=== PATIENT | female | born 1965 | race African-American/Black ===

== ENCOUNTER 2016-08-27 16:19 | Emergency (ER) | payer MEDICARE, MEDICAID ==
[~2016-08-27] VITALS: Ht 162.6 cm; Wt 48.6 kg
[2016-08-27] MEDS ORDERED: ATOR20TA86 PO (16:30)
[2016-08-27] MEDS ORDERED: VITAD1000 PO (16:30)
[2016-08-27] MEDS ORDERED: AMLO-512 PO (16:30)
[2016-08-27] MEDS ORDERED: [UNRECOGNIZED DRUG - CODE] MC (16:30)
[2016-08-27] MEDS ORDERED: ASPI-556 PO (16:30)
[2016-08-27] MEDS ORDERED: INSLAN SQ (16:30)
[2016-08-27] MEDS ORDERED: INSNOV SQ (16:30)
[2016-08-27 18:00] LABS: APPEARANCE,URINE CLOUDY (CLEAR); GLUCOSE, URINE (UA) >=1000 mg/dL (NEGATIVE); KETONES,URINE NEGATIVE (NEGATIVE); LEUKOCYTE ESTERASE ,URINE MODERATE (NEGATIVE); OCCULT BLOOD,URINE SMALL (NEGATIVE); PH,URINE 5.5 (5.0-8.0); PROTEIN,URINE NEGATIVE (NEGATIVE)
[2016-08-27 18:02] LABS: ADD UA MICROSCOPIC YES; SQUAMOUS EPITHELIAL CELL,UR Many /LPF (None Seen); WBC,URINE 26-50 /HPF (0-5)
[2016-08-27 21:16] VITALS: BP 132/87
== END 2016-08-27 21:20 | disposition home or self-care (01) ==
LOC: EMS 16:27
DX: B37.3 Candidiasis of vulva and vagina (principal); N39.0 Urinary tract infection, site not specified; E11.9 Type 2 diabetes mellitus without complications; E78.00 Pure hypercholesterolemia, unspecified; I11.9 Hypertensive heart disease without heart failure; I25.2 Old myocardial infarction; F17.210 Nicotine dependence, cigarettes, uncomplicated; Z79.82 Long term (current) use of aspirin; Z79.4 Long term (current) use of insulin
CPT/HCPCS: 82570; 87086; 99284

== ENCOUNTER 2018-04-28 18:10 | Emergency (ER) | payer MEDICARE, MEDICAID ==
[~2018-04-28] VITALS: Ht 162.6 cm; Wt 50.0 kg
[~2018-04-28 18:10] MED LIST: AMLO-512 PO; ASPI-556 PO; ATOR20TA86 PO; INSLAN SQ; INSNOV SQ; VITAD1000 PO; [UNRECOGNIZED DRUG - CODE] MC
[2018-04-28] MEDS ORDERED: CARV3 PO (18:22)
[2018-04-28] MEDS ORDERED: SODIUM CHLORIDE 0.9% 1,000 ML IV ONE (19:30)
[2018-04-28] MEDS ORDERED: INSULIN REGULAR, HUMAN 100 UNITS/ML IVP ONE (19:30)
[2018-04-28 19:46] LABS: ALBUMIN 3.6 g/dL (3.4-5.0); BILIRUBIN,TOTAL 0.4 mg/dL (0.1-1.0); CALCIUM, TOTAL 9.8 mg/dL (8.8-10.5); CREATININE 1.82 mg/dL (0.60-1.30); POTASSIUM 4.4 mmol/L (3.5-5.1); TOTAL PROTEIN, SERUM 7.7 g/dL (6.4-8.2)
[2018-04-28 19:47] LABS: BASOPHILS % (AUTO) 0.6 % (0.0-2.0); EOSINOPHILS % (AUTO) 0.6 % (1.0-6.0); HEMATOCRIT 43.5 % (36-46); HEMOGLOBIN 14.7 g/dL (12.0-16.0); LYMPHOCYTES % (AUTO) 12.9 % (22.0-44.0); MEAN CORPUSCULAR HEMOGLOBIN 32.7 pg (26.0-34.0); MEAN CORPUSCULAR HGB CONC 33.8 G/dL (31.0-37.0); MEAN CORPUSCULAR VOLUME 97 fL (80-100); MONOCYTES # (AUTO) 0.2 K/uL (0.1-1.0); MONOCYTES % (AUTO) 3.1 % (2.0-9.0); NEUTROPHILS # (AUTO) 6.4 K/uL (1.8-7.7); NEUTROPHILS % (AUTO) 82.8 % (40.0-70.0); PLATELET COUNT (AUTO) 192 K/uL (150-450); RED BLOOD CELL COUNT(AUTO) 4.48 MIL/uL (4.00-5.20); RED CELL DISTRIBUTION WIDTH 14.4 % (11.5-14.5)
[2018-04-28] MEDS: ACETAMINOPHEN 650 MG/20.3 ML SOLUTION UDCUP PO ONE ×2 (19:52→20:18)
[2018-04-28] MEDS ORDERED: MORPHINE SULFATE 4 MG/ML SYRINGE IVP ONE (20:00)
[2018-04-28] MEDS ORDERED: ONDANSETRON HCL 4 MG/2 ML VIAL IVP ONE (20:00)
[2018-04-28 21:49] LABS: GLUCOSE,POINT OF CARE 167 MG/DL (70-110)
[2018-04-28 22:15] VITALS: BP 156/83
== END 2018-04-28 22:36 | disposition home or self-care (01) ==
LOC: EMS 18:11
DX: S39.92XA Unspecified injury of lower back, initial encounter (principal); E11.65 Type 2 diabetes mellitus with hyperglycemia; E78.00 Pure hypercholesterolemia, unspecified; I10 Essential (primary) hypertension; I25.2 Old myocardial infarction; F17.210 Nicotine dependence, cigarettes, uncomplicated; Z79.4 Long term (current) use of insulin; Z79.82 Long term (current) use of aspirin; Z79.899 Other long term (current) drug therapy; Z98.62 Peripheral vascular angioplasty status; Z94.0 Kidney transplant status; W18.49XA Other slipping, tripping and stumbling without falling, initial encounter; Y93.89 Activity, other specified; Y92.89 Other specified places as the place of occurrence of the external cause; Y99.8 Other external cause status
CPT/HCPCS: 36415; 72220; 80053; 82962; 85025; 96361; 96374; 99285; J1815; J7030; J2270; J2405

== ENCOUNTER 2019-12-19 15:13 | Inpatient (IN) | payer MEDICARE, MEDICAID ==
[~2019-12-19] VITALS: Ht 157.5 cm; Wt 50.0 kg
[~2019-12-19 15:13] MED LIST changes: -AMLO-512 PO; +AMLO10TA7 PO; +CARV3 PO; +CHOL100018 PO; -VITAD1000 PO
[2019-12-19] MEDS ORDERED: 0.9% SODIUM CHLORIDE 10 ML SYRINGE IVP PRN (16:15)
[2019-12-19 16:45] LABS: HEMATOCRIT 26.3 % (36-46); HEMOGLOBIN 8.6 g/dL (12.0-16.0); MEAN CORPUSCULAR HEMOGLOBIN 30.5 pg (26.0-34.0); MEAN CORPUSCULAR HGB CONC 32.8 G/dL (31.0-37.0); MEAN CORPUSCULAR VOLUME 93 fL (80-100); RED BLOOD CELL COUNT(AUTO) 2.83 MIL/uL (4.00-5.20); RED CELL DISTRIBUTION WIDTH 14.7 % (11.5-14.5)
[2019-12-19 17:04] LABS: ALANINE AMINOTRANSFERASE 12 U/L (12-78); ALKALINE PHOSPHATASE 83 U/L (46-116); ANION GAP 28 mmol/L (8-16); ASPARTATE AMINOTRANSFERASE 17 U/L (15-37); BILIRUBIN,TOTAL 0.7 mg/dL (0.1-1.0); CALCIUM, TOTAL 8.6 mg/dL (8.8-10.5); CHLORIDE 95 mmol/L (98-107); CREATINE KINASE, TOTAL ONLY 114 U/L (26-192); CREATININE 15.25 mg/dL (0.60-1.30); GLOMERULAR FILTR. RATE CALC 3 mL/min (>60); SODIUM SERUM 131 mmol/L (136-145); TOTAL PROTEIN, SERUM 6.9 g/dL (6.4-8.2)
[2019-12-19 17:05] LABS: LACTIC ACID 0.6 mmol/L (0.4-2.0); PROTHROMBIN TIME 10.5 SEC (9.4-11.6); TROPONIN I 0.05 ng/mL (0.00-0.05)
[2019-12-19] MEDS ORDERED: PERMETHRIN 1% 60 ML LOTION TP ONE (17:15)
[2019-12-19] MEDS ORDERED: HydrALAZINE HCL 20 MG/ML VIAL IVP ONE ×2 (17:15→19:30)
[2019-12-19 17:16] LABS: CARBON DIOXIDE 8 mmol/L (22-29); GLUCOSE,RANDOM 408 mg/dL (70-110); POTASSIUM 6.7 mmol/L (3.5-5.1)
[2019-12-19 17:17] LABS: UREA NITROGEN, BLOOD 293 mg/dL (7-18)
[2019-12-19 17:19] LABS: AMMONIA < 10 umol/L (11-32)
[2019-12-19] MEDS ORDERED: CALCIUM GLUCONATE 100 MG/ML 10 ML IVP ONE (17:30)
[2019-12-19] MEDS ORDERED: INSULIN REGULAR, HUMAN 100 UNITS/ML IVP ONE (17:30)
[2019-12-19] MEDS ORDERED: SODIUM POLYSTYRENE SULFONATE 15 GM/60 ML SUSPENSION BOTTLE PO ONE (17:30)
[2019-12-19] MEDS ORDERED: FAMO-135 PO (17:42)
[2019-12-19] MEDS ORDERED: CYCL15CA PO (17:44)
[2019-12-19] MEDS ORDERED: MYCO500V2 IV (17:44)
[2019-12-19] MEDS ORDERED: PRED5 PO (17:44)
[2019-12-19] MEDS ORDERED: TACR0.75 PO (17:44)
[2019-12-19] MEDS ORDERED: SODIUM CHLORIDE 0.9% 1,000 ML IV ONE ×3 (17:45→22:15)
[2019-12-19] MEDS ORDERED: SODIUM ZIRCONIUM CYCLOSILICATE 5 GM POWDER PACKET PO ONE ×2 (17:45→23:30)
[2019-12-19 17:47] LABS: ABG CARBOXYHEMOGLOBIN 0.3 % (0.0-1.5); ABG METHEMOGLOBIN 0.3 % (0.0-1.5); ABG OXYGEN CONTENT 11.2 mL/dL (15.0-23.0); ABG OXYGEN SATURATION 85.4 % (95.0-98.0); ABG OXYHEMOGLOBIN 84.9 % (94.0-100.0); ABG TOTAL HEMOGLOBIN 9.3 G/dL (12.0-18.0); PO2, ARTERIAL BG 51.7 mmHg (84.0-92.0); SOURCE, BLOOD GAS ARTERIAL; TEMPERATURE, FAHRENHEIT, BG 94.3 FAHREN (96.0-98.6)
[2019-12-19 17:48] LABS: O2 DEVICE,BLOOD GAS ROOM AIR (ROOM AIR); SITE, BLOOD GAS LFT BRACHIAL
[2019-12-19] MEDS ORDERED: SODIUM BICARBONATE [ADULT] 8.4% 50 MEQ/50 ML SYRINGE IVP ONE (18:00)
[2019-12-19 18:43] LABS: PLATELET COUNT (AUTO) 87 K/uL (150-450)
[2019-12-19 18:45] LABS: BAND NEUTROPHILS % (MANUAL) 17 % (0-5); BUFFY COAT SMEAR PREP YES (NOT DONE); LYMPHOCYTES % (MANUAL) 2 % (22-44); MONOCYTES % (MANUAL) 16 % (2-9); SEGMENTED NEUTROPHILS % 65 % (40-70)
[2019-12-19] MEDS ORDERED: CefTRIAXone 1 GM/DEXTROSE 50 ML IV ONE (19:00)
[2019-12-19 19:17] LABS: ABG PH 7.196 (7.35-7.450)
[2019-12-19 19:18] LABS: ABG HCO3 8.6 mmol/L (22.0-26.0); ABG PCO2 14 mmHg (35-45)
[2019-12-19 20:29] LABS: APPEARANCE,URINE TURBID (CLEAR); GLUCOSE, URINE (UA) 250 mg/dL (NEGATIVE); KETONES,URINE >=80 mg/dL (NEGATIVE); LEUKOCYTE ESTERASE ,URINE LARGE (NEGATIVE); NITRATE,URINE POSITIVE (NEGATIVE); OCCULT BLOOD,URINE LARGE (NEGATIVE); PROTEIN,URINE SEE CONFIRM (NEGATIVE)
[2019-12-19 20:30] LABS: BILIRUBIN,URINE PRELIM. POSITIVE (NEGATIVE)
[2019-12-19 20:37] LABS: GLUCOSE,POINT OF CARE 164 MG/DL (70-110)
[2019-12-19 20:40] LABS: SULFOSALICYLIC ACID,URINE 4+ (Negative)
[2019-12-19 20:41] LABS: RBC,URINE Full Field /HPF (0-2)
[2019-12-19 20:42] LABS: BACTERIA,URINE Many /HPF (None Seen); SQUAMOUS EPITHELIAL CELL,UR Few /LPF (None Seen)
[2019-12-19 20:43] LABS: WBC,URINE 26-50 /HPF (0-5)
[2019-12-19 20:44] LABS: AMPHET/METH SCREEN,URINE NEGATIVE (NEGATIVE); BARBITURATE SCREEN, URINE NEGATIVE (NEGATIVE); BENZODIAZEPINES SCREEN,URINE NEGATIVE (NEGATIVE); CANNABINOID SCREEN,URINE POSITIVE (NEGATIVE); COCAINE SCREEN,URINE NEGATIVE (NEGATIVE); METHADONE SCREEN, URINE NEGATIVE (NEGATIVE); OPIATE SCREEN,URINE POSITIVE (NEGATIVE)
[2019-12-19] MEDS ORDERED: ACETAMINOPHEN 325 MG TABLET PO PRN ×2 (20:45→22:15)
[2019-12-19 20:49] LABS: PHENCYCLIDINE SCREEN,URINE NEGATIVE (NEGATIVE)
[2019-12-19 21:35] LABS: CREATININE 14.08 mg/dL (0.60-1.30); POTASSIUM 5.2 mmol/L (3.5-5.1)
[2019-12-19 21:40] LABS: GLUCOSE,POINT OF CARE 140 MG/DL (70-110)
[2019-12-19] MEDS ORDERED: BISACODYL 10 MG RECTAL RECTAL SUPPOSITORY PR PRN (22:15)
[2019-12-19] MEDS ORDERED: ONDANSETRON HCL 4 MG/2 ML VIAL IVP PRN (22:15)
[2019-12-19] MEDS ORDERED: ZOLPIDEM TARTRATE 5 MG TABLET PO PRN (22:15)
[2019-12-19] MEDS ORDERED: MORPHINE SULFATE 2 MG/ML SYRINGE IVP PRN (22:15)
[2019-12-20] VITALS (8 sets, daily range): BP systolic 117–173; BP diastolic 62–100
[2019-12-20] MEDS ORDERED: PNEUMOCOCCAL VACCINE POLYVALENT 0.5 ML VIAL [PPSV23] IM ONE (03:15)
[2019-12-20 06:20] LABS: HEMATOCRIT 22.7 % (36-46); HEMOGLOBIN 7.6 g/dL (12.0-16.0); MEAN CORPUSCULAR HEMOGLOBIN 30.5 pg (26.0-34.0); MEAN CORPUSCULAR HGB CONC 33.5 G/dL (31.0-37.0); MEAN CORPUSCULAR VOLUME 91 fL (80-100); PLATELET COUNT (AUTO) 69 K/uL (150-450); RED BLOOD CELL COUNT(AUTO) 2.49 MIL/uL (4.00-5.20); RED CELL DISTRIBUTION WIDTH 14.9 % (11.5-14.5)
[2019-12-20] MEDS: DOCUSATE SODIUM 100 MG CAPSULE PO SCH ×2 (07:51→21:00)
[2019-12-20] MEDS: CHOLECALCIFEROL (VIT D3) 1,000 UNITS [25 MCG] TABLET PO SCH (07:51)
[2019-12-20] MEDS: HEPARIN SODIUM,PORCINE 5,000 UNITS/ML VIAL SQ SCH ×2 (07:52)
[2019-12-20 07:56] LABS: ALBUMIN 2.8 g/dL (3.4-5.0); BILIRUBIN,TOTAL 0.7 mg/dL (0.1-1.0); CALCIUM, TOTAL 7.7 mg/dL (8.8-10.5); CREATININE 13.57 mg/dL (0.60-1.30); POTASSIUM 5.6 mmol/L (3.5-5.1); TOTAL PROTEIN, SERUM 6.3 g/dL (6.4-8.2)
[2019-12-20] MEDS ORDERED: PANTOPRAZOLE SODIUM 40 MG DR TABLET PO SCH (09:00)
[2019-12-20] MEDS: SODIUM BICARBONATE 150 MEQ in DEXTROSE 5%-WATER 1,000 ML IV SCH (09:13)
[2019-12-20] MEDS ORDERED: HYDROmorphone 2 MG/ML SYRINGE IVP ONE (09:15)
[2019-12-20] MEDS ORDERED: DIAZEPAM 5 MG/ML 2 ML SYRINGE IVP ONE (09:15)
[2019-12-20 09:19] LABS: BAND NEUTROPHILS % (MANUAL) 6 % (0-5); LYMPHOCYTES % (MANUAL) 12 % (22-44); MONOCYTES % (MANUAL) 12 % (2-9); SEGMENTED NEUTROPHILS % 70 % (40-70)
[2019-12-20] MEDS ORDERED: HEPARIN SODIUM,PORCINE 100 UNITS/ML 5 ML VIAL IVP ONE ×2 (09:30)
[2019-12-20] MEDS ORDERED: HEPARIN SODIUM,PORCINE 1,000 UNITS/ML VIAL ONE (09:55)
[2019-12-20] MEDS: LABETALOL HCL 100 MG TABLET PO SCH ×2 (10:30→21:00)
[2019-12-20] MEDS ORDERED: SODIUM CHLORIDE 0.9% 500 ML IV ONE (12:12)
[2019-12-20 14:17] LABS: MAGNESIUM 2.4 mg/dL (1.80-2.40)
[2019-12-20 14:33] LABS: PHOSPHORUS 9.7 mg/dL (2.5-4.9)
[2019-12-20 14:55] LABS: GLUCOSE,POINT OF CARE 268 MG/DL (70-110)
[2019-12-20] MEDS: INSULIN LISPRO 100 UNITS/ML SQ PRN (18:03)
[2019-12-20] MEDS: PANTOPRAZOLE SODIUM 80 MG in SODIUM CHLORIDE 0.9% 100 ML IV SCH (18:04)
[2019-12-20 18:28] LABS: GLUCOMETER DEV NAME(LOC) 4E.2; GLUCOSE,POINT OF CARE 290 MG/DL (70-110)
[2019-12-20] MEDS ORDERED: SODIUM CHLORIDE 0.9% 2,000 ML ONE (18:38)
[2019-12-20] MEDS ORDERED: SODIUM CHLORIDE 0.9% 1,000 ML IV ONE (19:30)
[2019-12-20] MEDS ORDERED: NOREPINEPHRINE BITARTRATE 16 MG in DEXTROSE 5%-WATER 234 ML IV PRN (19:30)
[2019-12-20] MEDS ORDERED: VANCOMYCIN HCL 1 GM/D5% WATER 200 ML IV STA (20:08)
[2019-12-20 20:17] LABS: ABG A-A DIFF O2 5.3 mmHg (10-20.0); ABG CARBOXYHEMOGLOBIN 1.8 % (0.0-1.5); ABG HCO3 12.5 mmol/L (22.0-26.0); ABG METHEMOGLOBIN 0.3 % (0.0-1.5); ABG OXYGEN CONTENT 7.4 mL/dL (15.0-23.0); ABG OXYGEN SATURATION 98.7 % (95.0-98.0); ABG OXYHEMOGLOBIN 96.6 % (94.0-100.0); ABG PH 7.392 (7.35-7.450); PO2, ARTERIAL BG 126.6 mmHg (84.0-92.0); SOURCE, BLOOD GAS ARTERIAL; TEMPERATURE, FAHRENHEIT, BG 97.1 FAHREN (96.0-98.6)
[2019-12-20 20:25] LABS: ABG PCO2 15 mmHg (35-45); ABG TOTAL HEMOGLOBIN 5.2 G/dL (12.0-18.0); SITE, BLOOD GAS RT BRACHIAL
[2019-12-20 20:26] LABS: O2 DEVICE,BLOOD GAS ROOM AIR (ROOM AIR)
[2019-12-20] MEDS ORDERED: VANCOMYCIN HCL 1 GM/D5% WATER 200 ML IV PRN (20:30)
[2019-12-20] MEDS ORDERED: RAPID SEQUENCE KIT [RSI] 1 EACH KIT ONE (20:40)
[2019-12-20 20:51] LABS: MEAN CORPUSCULAR HGB CONC 34.1 G/dL (31.0-37.0); MEAN CORPUSCULAR VOLUME 91 fL (80-100); RED BLOOD CELL COUNT(AUTO) 1.65 MIL/uL (4.00-5.20); RED CELL DISTRIBUTION WIDTH 14.8 % (11.5-14.5)
[2019-12-20] MEDS ORDERED: HEPARIN SODIUM 1000 UNITS/NS 500 ML ONE (20:57)
[2019-12-20] MEDS ORDERED: CefTRIAXone 1 GM/DEXTROSE 50 ML IV SCH (21:00)
[2019-12-20] MEDS: ATORVASTATIN CALCIUM 20 MG TABLET PO SCH (21:00)
[2019-12-20 21:14] LABS: HEMOGLOBIN 5.1 g/dL (12.0-16.0)
[2019-12-20 21:18] LABS: PLATELET COUNT (AUTO) 45 K/uL (150-450)
[2019-12-20 22:14] LABS: BAND NEUTROPHILS % (MANUAL) 11 % (0-5); LYMPHOCYTES % (MANUAL) 4 % (22-44); MONOCYTES % (MANUAL) 13 % (2-9); SEGMENTED NEUTROPHILS % 72 % (40-70)
[2019-12-20 22:44] LABS: PROTHROMBIN TIME 12.7 SEC (9.4-11.6)
[2019-12-20 22:45] LABS: INR 1.2 (0.9-1.1)
[2019-12-20 22:46] LABS: D-DIMER 2.87 mg/L FEU (0.00-0.50)
[2019-12-20] MEDS: PROPOFOL 1000 MG/ISO-OSM 100 ML IV PRN (23:00)
[2019-12-20] MEDS ORDERED: VASOPRESSIN 40 UNITS in DEXTROSE 5%-WATER 98 ML IV PRN (23:13)
[2019-12-20] MEDS ORDERED: PHENYLEPHRINE HCL 400 MG in DEXTROSE 5%-WATER 210 ML IV PRN (23:13)
[2019-12-20 23:46] LABS: ABG A-A DIFF O2 315.4 mmHg (10-20.0); ABG BASE EXCESS -18.3 mmol/L (-2.0-3.0); ABG CARBOXYHEMOGLOBIN 2.4 % (0.0-1.5); ABG METHEMOGLOBIN 0.3 % (0.0-1.5); ABG OXYGEN CONTENT 5.8 mL/dL (15.0-23.0); ABG OXYGEN SATURATION 99.7 % (95.0-98.0); ABG PCO2 30 mmHg (35-45); SOURCE, BLOOD GAS ARTERIAL; TEMPERATURE, FAHRENHEIT, BG 97.3 FAHREN (96.0-98.6)
[2019-12-20 23:47] LABS: ABG PH 7.165 (7.35-7.450); ABG TOTAL HEMOGLOBIN 3.4 G/dL (12.0-18.0); O2 DEVICE,BLOOD GAS VENTILATOR (ROOM AIR); SITE, BLOOD GAS ARTERIAL LINE
[2019-12-20 23:48] LABS: PEEP,BG 5 cm H2O; VT, ABG 450 ml
[2019-12-21] VITALS (14 sets, daily range): BP systolic 90–184; BP diastolic 32–87
[2019-12-21] MEDS: PIPERACILLIN SODIUM/TAZOBACTAM 2.25 GM in DEXTROSE 5%-WATER 50 ML IV SCH ×4 (00:08→21:29)
[2019-12-21] MEDS: SODIUM BICARBONATE 150 MEQ in DEXTROSE 5%-WATER 1,000 ML IV SCH ×2 (00:11→17:07)
[2019-12-21 01:57] LABS: ABG A-A DIFF O2 179.6 mmHg (10-20.0); ABG BASE EXCESS -15.9 mmol/L (-2.0-3.0); ABG CARBOXYHEMOGLOBIN 0.2 % (0.0-1.5); ABG HCO3 13.1 mmol/L (22.0-26.0); ABG METHEMOGLOBIN 0.3 % (0.0-1.5); ABG OXYGEN CONTENT 12.5 mL/dL (15.0-23.0); ABG OXYGEN SATURATION 99.6 % (95.0-98.0); ABG OXYHEMOGLOBIN 99.1 % (94.0-100.0); ABG PCO2 20 mmHg (35-45); ABG PH 7.323 (7.35-7.450); PO2, ARTERIAL BG 515.3 mmHg (84.0-92.0); SOURCE, BLOOD GAS ARTERIAL; TEMPERATURE, FAHRENHEIT, BG 97.1 FAHREN (96.0-98.6)
[2019-12-21 01:58] LABS: ABG TOTAL HEMOGLOBIN 7.9 G/dL (12.0-18.0); O2 DEVICE,BLOOD GAS VENTILATOR (ROOM AIR); SITE, BLOOD GAS ARTERIAL LINE; VT, ABG 350 ml
[2019-12-21 01:59] LABS: PEEP,BG 5 cm H2O
[2019-12-21] MEDS: PANTOPRAZOLE SODIUM 80 MG in SODIUM CHLORIDE 0.9% 100 ML IV SCH ×2 (05:33→13:54)
[2019-12-21 06:46] LABS: GLUCOSE,POINT OF CARE 279 MG/DL (70-110)
[2019-12-21] MEDS: INSULIN LISPRO 100 UNITS/ML SQ PRN ×2 (06:54→12:31)
[2019-12-21 06:56] LABS: CREATININE 10.08 mg/dL (0.60-1.30); MAGNESIUM 2.1 mg/dL (1.80-2.40); POTASSIUM 5.4 mmol/L (3.5-5.1)
[2019-12-21 06:59] LABS: GLUCOSE,POINT OF CARE 341 MG/DL (70-110)
[2019-12-21 07:30] LABS: HEMATOCRIT 26.7 % (36-46); MEAN CORPUSCULAR HEMOGLOBIN 30.6 pg (26.0-34.0); MEAN CORPUSCULAR HGB CONC 33.6 G/dL (31.0-37.0); MEAN CORPUSCULAR VOLUME 91 fL (80-100); PLATELET COUNT (AUTO) 26 K/uL (150-450); RED BLOOD CELL COUNT(AUTO) 2.93 MIL/uL (4.00-5.20); RED CELL DISTRIBUTION WIDTH 14.3 % (11.5-14.5)
[2019-12-21 07:49] LABS: PHOSPHORUS 9.5 mg/dL (2.5-4.9)
[2019-12-21] MEDS ORDERED: CALCIUM GLUCONATE 100 MG/ML 10 ML IVP ONE (08:45)
[2019-12-21 09:44] LABS: BAND NEUTROPHILS % (MANUAL) 10 % (0-5); EOSINOPHILS % (MANUAL) 1 % (1-6); LYMPHOCYTES % (MANUAL) 6 % (22-44); MONOCYTES % (MANUAL) 10 % (2-9); SEGMENTED NEUTROPHILS % 73 % (40-70)
[2019-12-21 09:45] LABS: BUFFY COAT SMEAR PREP YES (NOT DONE)
[2019-12-21] MEDS: CHOLECALCIFEROL (VIT D3) 1,000 UNITS [25 MCG] TABLET PO SCH (10:40)
[2019-12-21] MEDS: LABETALOL HCL 100 MG TABLET PO SCH ×2 (10:40→21:00)
[2019-12-21] MEDS: DOCUSATE SODIUM 100 MG CAPSULE PO SCH ×2 (10:40→21:00)
[2019-12-21] MEDS ORDERED: ASPI-1111 PO (12:16)
[2019-12-21] MEDS ORDERED: TACR1TAB PO (12:16)
[2019-12-21] MEDS ORDERED: CYCL10 PO (12:16)
[2019-12-21] MEDS ORDERED: MYCO500T5 PO (12:16)
[2019-12-21] MEDS ORDERED: AMLO5TAB66 PO (12:16)
[2019-12-21] MEDS ORDERED: CHOL100018 PO (12:16)
[2019-12-21] MEDS ORDERED: ATOR40TA28 PO (12:16)
[2019-12-21] MEDS ORDERED: FAMO20 PO (12:17)
[2019-12-21] MEDS ORDERED: SODIUM CHLORIDE 0.9% 2,000 ML ONE (13:35)
[2019-12-21 14:15] LABS: HEMATOCRIT 22.2 % (36-46); HEMOGLOBIN 7.9 g/dL (12.0-16.0); MEAN CORPUSCULAR HEMOGLOBIN 31.3 pg (26.0-34.0); MEAN CORPUSCULAR HGB CONC 35.7 G/dL (31.0-37.0); MEAN CORPUSCULAR VOLUME 88 fL (80-100); PLATELET COUNT (AUTO) 21 K/uL (150-450); RED BLOOD CELL COUNT(AUTO) 2.53 MIL/uL (4.00-5.20); RED CELL DISTRIBUTION WIDTH 14.2 % (11.5-14.5)
[2019-12-21 14:27] LABS: CALCIUM, TOTAL 6.6 mg/dL (8.8-10.5); CREATININE 9.86 mg/dL (0.60-1.30); POTASSIUM 4.6 mmol/L (3.5-5.1)
[2019-12-21] MEDS: FILGRASTIM 300 MCG/0.5 ML SYRINGE SQ SCH (14:40)
[2019-12-21] MEDS ORDERED: HEPARIN SODIUM,PORCINE 1,000 UNITS/ML VIAL ONE (16:04)
[2019-12-21 16:19] LABS: ABG A-A DIFF O2 652.7 mmHg (10-20.0); ABG BASE EXCESS -10.4 mmol/L (-2.0-3.0); ABG CARBOXYHEMOGLOBIN 1.3 % (0.0-1.5); ABG HCO3 16.4 mmol/L (22.0-26.0); ABG METHEMOGLOBIN 0.3 % (0.0-1.5); ABG OXYGEN CONTENT 6.4 mL/dL (15.0-23.0); ABG OXYHEMOGLOBIN 60.1 % (94.0-100.0); ABG PCO2 25 mmHg (35-45); ABG PH 7.389 (7.35-7.450); TEMPERATURE, FAHRENHEIT, BG 99.3 FAHREN (96.0-98.6)
[2019-12-21 16:23] LABS: ABG A-A DIFF O2 336.2 mmHg (10-20.0); ABG BASE EXCESS -10.2 mmol/L (-2.0-3.0); ABG HCO3 17.2 mmol/L (22.0-26.0); ABG METHEMOGLOBIN 0.3 % (0.0-1.5); ABG OXYGEN CONTENT 11.1 mL/dL (15.0-23.0); ABG OXYGEN SATURATION 99.5 % (95.0-98.0); ABG OXYHEMOGLOBIN 98.2 % (94.0-100.0); ABG PH 7.553 (7.35-7.450); PO2, ARTERIAL BG 361.7 mmHg (84.0-92.0); SOURCE, BLOOD GAS ARTERIAL; TEMPERATURE, FAHRENHEIT, BG 99.3 FAHREN (96.0-98.6)
[2019-12-21 16:26] LABS: ABG OXYGEN SATURATION 61.1 % (95.0-98.0); ABG TOTAL HEMOGLOBIN 7.5 G/dL (12.0-18.0); PO2, ARTERIAL BG 34.7 mmHg (84.0-92.0); SITE, BLOOD GAS VASCATH; SOURCE, BLOOD GAS VENOUS
[2019-12-21 16:27] LABS: O2 DEVICE,BLOOD GAS VENTILATOR (ROOM AIR); PEEP,BG 5 cm H2O; VT, ABG 350 ml
[2019-12-21 16:28] LABS: ABG PCO2 14 mmHg (35-45); ABG TOTAL HEMOGLOBIN 7.3 G/dL (12.0-18.0)
[2019-12-21 16:29] LABS: SITE, BLOOD GAS ARTLINE
[2019-12-21 16:30] LABS: O2 DEVICE,BLOOD GAS VENTILATOR (ROOM AIR); PEEP,BG 5 cm H2O; VT, ABG 350 ml
[2019-12-21 17:04] LABS: BUFFY COAT SMEAR PREP YES (NOT DONE)
[2019-12-21 17:07] LABS: BAND NEUTROPHILS % (MANUAL) 6 % (0-5); EOSINOPHILS % (MANUAL) 2 % (1-6); LYMPHOCYTES % (MANUAL) 27 % (22-44); MONOCYTES % (MANUAL) 4 % (2-9); SEGMENTED NEUTROPHILS % 61 % (40-70)
[2019-12-21] MEDS ORDERED: ALBUMIN HUMAN 25%-12.5GM/50ML IV BOTTLE ONE (18:14)
[2019-12-21] MEDS: ATORVASTATIN CALCIUM 20 MG TABLET PO SCH (21:00)
[2019-12-21] MEDS: PROPOFOL 1000 MG/ISO-OSM 100 ML IV PRN (21:00)
[2019-12-22] MEDS: PANTOPRAZOLE SODIUM 80 MG in SODIUM CHLORIDE 0.9% 100 ML IV SCH ×3 (00:25→20:19)
[2019-12-22 00:28] VITALS: BP 111/30
[2019-12-22] MEDS ORDERED: *CLINICAL-CEFTAZIDIME DOSING CLINICAL ONE (00:30)
[2019-12-22 00:40] LABS: HEMATOCRIT 21.4 % (36-46); HEMOGLOBIN 7.8 g/dL (12.0-16.0); MEAN CORPUSCULAR HGB CONC 36.4 G/dL (31.0-37.0); MEAN CORPUSCULAR VOLUME 88 fL (80-100); PLATELET COUNT (AUTO) 29 K/uL (150-450); RED BLOOD CELL COUNT(AUTO) 2.44 MIL/uL (4.00-5.20); RED CELL DISTRIBUTION WIDTH 14.5 % (11.5-14.5)
[2019-12-22] MEDS ORDERED: CefTAZidime PENTAHYDRATE 1 GM in DEXTROSE 5%-WATER 50 ML IV PRN (01:00)
[2019-12-22] MEDS ORDERED: CefTAZidime PENTAHYDRATE 1 GM in DEXTROSE 5%-WATER 50 ML IV ONE (01:00)
[2019-12-22] MEDS ORDERED: ALBUMIN HUMAN 25%-25GM/100ML 100 ML IV STA (01:46)
[2019-12-22] MEDS ORDERED: ALBUMIN HUMAN 25%-25GM/100ML 100 ML IV PRN (02:00)
[2019-12-22 02:16] LABS: BAND NEUTROPHILS % (MANUAL) 1 % (0-5); EOSINOPHILS % (MANUAL) 2 % (1-6); LYMPHOCYTES % (MANUAL) 22 % (22-44); MONOCYTES % (MANUAL) 6 % (2-9); SEGMENTED NEUTROPHILS % 69 % (40-70)
[2019-12-22 02:17] LABS: BUFFY COAT SMEAR PREP YES (NOT DONE)
[2019-12-22 02:49] LABS: GLUCOMETER DEV NAME(LOC) 4E.2; GLUCOSE,POINT OF CARE 97 MG/DL (70-110)
[2019-12-22 02:49] LABS: GLUCOSE,POINT OF CARE 217 MG/DL (70-110)
[2019-12-22 02:50] LABS: GLUCOMETER DEV NAME(LOC) 4E.2; GLUCOSE,POINT OF CARE 106 MG/DL (70-110)
[2019-12-22 04:00] VITALS: BP 99/65
[2019-12-22] MEDS: PROPOFOL 1000 MG/ISO-OSM 100 ML IV PRN (05:01)
[2019-12-22] MEDS: PIPERACILLIN SODIUM/TAZOBACTAM 2.25 GM in DEXTROSE 5%-WATER 50 ML IV SCH ×3 (05:59→20:19)
[2019-12-22] MEDS ORDERED: LIDOCAINE/PF 2% 5 ML VIAL IM ONE (06:12)
[2019-12-22] MEDS ORDERED: ETOMIDATE 2 MG/ML 10 ML VIAL IVP ONE (06:12)
[2019-12-22] MEDS ORDERED: ROCURONIUM BROMIDE 10 MG/ML 5 ML VIAL IVP ONE (06:12)
[2019-12-22] MEDS: DEXTROSE 50%-WATER 25 GM/50 ML SYRINGE IVP PRN (06:12)
[2019-12-22 06:46] LABS: HEMOGLOBIN 7.2 g/dL (12.0-16.0); MEAN CORPUSCULAR HEMOGLOBIN 31.9 pg (26.0-34.0); MEAN CORPUSCULAR HGB CONC 36.7 G/dL (31.0-37.0); MEAN CORPUSCULAR VOLUME 87 fL (80-100); RED BLOOD CELL COUNT(AUTO) 2.24 MIL/uL (4.00-5.20); RED CELL DISTRIBUTION WIDTH 14.2 % (11.5-14.5)
[2019-12-22 06:56] LABS: HEMATOCRIT 19.5 % (36-46); PLATELET COUNT (AUTO) 17 K/uL (150-450)
[2019-12-22 07:00] LABS: CALCIUM, TOTAL 7.9 mg/dL (8.8-10.5); CREATININE 5.03 mg/dL (0.60-1.30); MAGNESIUM 1.7 mg/dL (1.80-2.40); PHOSPHORUS 5.3 mg/dL (2.5-4.9); POTASSIUM 3.5 mmol/L (3.5-5.1); VANCOMYCIN,RANDOM 12.4 mcg/mL (25.0-50.0)
[2019-12-22 07:59] LABS: BAND NEUTROPHILS % (MANUAL) 1 % (0-5); EOSINOPHILS % (MANUAL) 1 % (1-6); LYMPHOCYTES % (MANUAL) 24 % (22-44); MONOCYTES % (MANUAL) 3 % (2-9); SEGMENTED NEUTROPHILS % 71 % (40-70)
[2019-12-22 08:00] VITALS: BP 140/75
[2019-12-22] MEDS: CHOLECALCIFEROL (VIT D3) 1,000 UNITS [25 MCG] TABLET PO SCH (08:52)
[2019-12-22] MEDS: LABETALOL HCL 100 MG TABLET PO SCH ×2 (08:52→20:18)
[2019-12-22] MEDS: DOCUSATE SODIUM 100 MG CAPSULE PO SCH ×2 (08:52→20:18)
[2019-12-22] MEDS ORDERED: VANCOMYCIN HCL 1 GM/D5% WATER 200 ML IV ONE (09:00)
[2019-12-22 12:00] VITALS: BP 109/42
[2019-12-22] MEDS: FILGRASTIM 300 MCG/0.5 ML SYRINGE SQ SCH (12:44)
[2019-12-22] MEDS: INSULIN LISPRO 100 UNITS/ML SQ PRN (12:45)
[2019-12-22 13:25] LABS: ABG A-A DIFF O2 30.3 mmHg (10-20.0); ABG CARBOXYHEMOGLOBIN 0.8 % (0.0-1.5); ABG HCO3 23.2 mmol/L (22.0-26.0); ABG METHEMOGLOBIN 0.3 % (0.0-1.5); ABG OXYGEN CONTENT 10.4 mL/dL (15.0-23.0); ABG OXYGEN SATURATION 99.2 % (95.0-98.0); ABG OXYHEMOGLOBIN 98.1 % (94.0-100.0); ABG PCO2 24 mmHg (35-45); ABG PH 7.546 (7.35-7.450); PO2, ARTERIAL BG 191.5 mmHg (84.0-92.0); SOURCE, BLOOD GAS ARTERIAL; TEMPERATURE, FAHRENHEIT, BG 98.2 FAHREN (96.0-98.6)
[2019-12-22 14:12] LABS: ABG TOTAL HEMOGLOBIN 7.2 G/dL (12.0-18.0); SITE, BLOOD GAS A LINE
[2019-12-22 14:13] LABS: O2 DEVICE,BLOOD GAS VENTILATOR (ROOM AIR); PEEP,BG 5 cm H2O; VT, ABG 350 ml
[2019-12-22 14:14] LABS: SPONTANEOUS VT, BG 350 ml
[2019-12-22 16:00] VITALS: BP 100/37
[2019-12-22] MEDS: NOREPINEPHRINE BITARTRATE 16 MG in DEXTROSE 5%-WATER 234 ML IV PRN (16:59)
[2019-12-22 20:00] VITALS: BP 106/62
[2019-12-22] MEDS: ATORVASTATIN CALCIUM 20 MG TABLET PO SCH (20:18)
[2019-12-22 23:46] LABS: GLUCOMETER DEV NAME(LOC) 4E.2; GLUCOSE,POINT OF CARE 67 MG/DL (70-110)
[2019-12-22 23:46] LABS: GLUCOMETER DEV NAME(LOC) 4E.2; GLUCOSE,POINT OF CARE 201 MG/DL (70-110)
[2019-12-23] VITALS (22 sets, daily range): BP systolic 94–170; BP diastolic 39–70
[2019-12-23] MEDS: PIPERACILLIN SODIUM/TAZOBACTAM 2.25 GM in DEXTROSE 5%-WATER 50 ML IV SCH ×3 (04:51→20:11)
[2019-12-23] MEDS: PANTOPRAZOLE SODIUM 80 MG in SODIUM CHLORIDE 0.9% 100 ML IV SCH ×3 (06:07→21:58)
[2019-12-23 08:44] LABS: MAGNESIUM 1.6 mg/dL (1.80-2.40); PHOSPHORUS 6.3 mg/dL (2.5-4.9); VANCOMYCIN,RANDOM 23.1 mcg/mL (25.0-50.0)
[2019-12-23] MEDS: LABETALOL HCL 100 MG TABLET PO SCH ×2 (09:00→21:00)
[2019-12-23] MEDS: PROPOFOL 1000 MG/ISO-OSM 100 ML IV PRN ×2 (09:41→23:35)
[2019-12-23] MEDS: DOCUSATE SODIUM 100 MG CAPSULE PO SCH ×2 (09:42→21:00)
[2019-12-23] MEDS: CHOLECALCIFEROL (VIT D3) 1,000 UNITS [25 MCG] TABLET PO SCH (09:42)
[2019-12-23] MEDS: FILGRASTIM 300 MCG/0.5 ML SYRINGE SQ SCH (10:41)
[2019-12-23 12:52] LABS: CALCIUM, TOTAL 7.1 mg/dL (8.8-10.5); CREATININE 4.21 mg/dL (0.60-1.30); POTASSIUM 4.3 mmol/L (3.5-5.1)
[2019-12-23 13:21] LABS: MEAN CORPUSCULAR HEMOGLOBIN 31.3 pg (26.0-34.0); MEAN CORPUSCULAR HGB CONC 34.9 G/dL (31.0-37.0); MEAN CORPUSCULAR VOLUME 90 fL (80-100); RED BLOOD CELL COUNT(AUTO) 1.63 MIL/uL (4.00-5.20); RED CELL DISTRIBUTION WIDTH 13.9 % (11.5-14.5)
[2019-12-23 13:33] LABS: HEMATOCRIT 14.6 % (36-46); HEMOGLOBIN 5.1 g/dL (12.0-16.0)
[2019-12-23 13:34] LABS: PLATELET COUNT (AUTO) 7 K/uL (150-450)
[2019-12-23 15:04] LABS: D-DIMER 3.43 mg/L FEU (0.00-0.50); INR 1.1 (0.9-1.1); PROTHROMBIN TIME 11.5 SEC (9.4-11.6)
[2019-12-23] MEDS ORDERED: HEPARIN SODIUM,PORCINE 1,000 UNITS/ML VIAL IVP ONE (17:32)
[2019-12-23 18:15] LABS: BAND NEUTROPHILS % (MANUAL) 5 % (0-5); EOSINOPHILS % (MANUAL) 2 % (1-6); LYMPHOCYTES % (MANUAL) 21 % (22-44); MONOCYTES % (MANUAL) 8 % (2-9); SEGMENTED NEUTROPHILS % 64 % (40-70)
[2019-12-23 18:16] LABS: BUFFY COAT SMEAR PREP YES (NOT DONE)
[2019-12-23] MEDS ORDERED: LEVOFLOXACIN 750 MG/D5% WATER 150 ML IV ONE (20:00)
[2019-12-23 20:32] LABS: GLUCOSE,POINT OF CARE 220 MG/DL (70-110)
[2019-12-23] MEDS: ATORVASTATIN CALCIUM 20 MG TABLET PO SCH (21:04)
[2019-12-23 21:29] LABS: HEMATOCRIT 23.6 % (36-46); HEMOGLOBIN 8.1 g/dL (12.0-16.0)
[2019-12-24] VITALS (8 sets, daily range): BP systolic 87–152; BP diastolic 37–67
[2019-12-24 00:30] LABS: GLUCOSE,POINT OF CARE 183 MG/DL (70-110)
[2019-12-24] MEDS: INSULIN LISPRO 100 UNITS/ML SQ PRN ×2 (00:37→07:34)
[2019-12-24] MEDS: PROPOFOL 1000 MG/ISO-OSM 100 ML IV PRN (03:23)
[2019-12-24] MEDS: PIPERACILLIN SODIUM/TAZOBACTAM 2.25 GM in DEXTROSE 5%-WATER 50 ML IV SCH ×3 (04:49→20:30)
[2019-12-24 06:25] LABS: GLUCOSE,POINT OF CARE 116 MG/DL (70-110)
[2019-12-24 06:26] LABS: GLUCOSE,POINT OF CARE 165 MG/DL (70-110)
[2019-12-24 06:26] LABS: GLUCOSE,POINT OF CARE 136 MG/DL (70-110)
[2019-12-24 07:00] LABS: D-DIMER 4.83 mg/L FEU (0.00-0.50); INR 1.1 (0.9-1.1); PROTHROMBIN TIME 11.7 SEC (9.4-11.6)
[2019-12-24 07:03] LABS: GLUCOMETER DEV NAME(LOC) 4E.2; GLUCOSE,POINT OF CARE 111 MG/DL (70-110)
[2019-12-24 07:04] LABS: GLUCOMETER DEV NAME(LOC) 4E.2; GLUCOSE,POINT OF CARE 157 MG/DL (70-110)
[2019-12-24] MEDS: CHOLECALCIFEROL (VIT D3) 1,000 UNITS [25 MCG] TABLET PO SCH (08:04)
[2019-12-24] MEDS: DOCUSATE SODIUM 100 MG CAPSULE PO SCH ×2 (08:04→21:00)
[2019-12-24] MEDS: LABETALOL HCL 100 MG TABLET PO SCH ×2 (08:04→21:00)
[2019-12-24] MEDS: PANTOPRAZOLE SODIUM 80 MG in SODIUM CHLORIDE 0.9% 100 ML IV SCH ×2 (08:05→17:05)
[2019-12-24 08:30] LABS: HEMATOCRIT 22.6 % (36-46); MEAN CORPUSCULAR HEMOGLOBIN 30.1 pg (26.0-34.0); MEAN CORPUSCULAR HGB CONC 35.4 G/dL (31.0-37.0); MEAN CORPUSCULAR VOLUME 85 fL (80-100); PLATELET COUNT (AUTO) 21 K/uL (150-450); RED BLOOD CELL COUNT(AUTO) 2.66 MIL/uL (4.00-5.20); RED CELL DISTRIBUTION WIDTH 19.3 % (11.5-14.5)
[2019-12-24 08:33] LABS: BAND NEUTROPHILS % (MANUAL) 0 % (0-5)
[2019-12-24 08:39] LABS: C.DIFF GDH ANTIGEN, Stool Negative (Negative); C.DIFF TOXINS A&B, Stool Negative (Negative)
[2019-12-24 08:47] LABS: EOSINOPHILS % (MANUAL) 10 % (1-6); LYMPHOCYTES % (MANUAL) 10 % (22-44); MONOCYTES % (MANUAL) 13 % (2-9); SEGMENTED NEUTROPHILS % 67 % (40-70)
[2019-12-24 08:55] LABS: ALBUMIN 1.6 g/dL (3.4-5.0); BILIRUBIN,TOTAL 0.9 mg/dL (0.1-1.0); CALCIUM, TOTAL 7.3 mg/dL (8.8-10.5); CREATININE 4.43 mg/dL (0.60-1.30); MAGNESIUM 1.7 mg/dL (1.80-2.40); PHOSPHORUS 7.3 mg/dL (2.5-4.9); POTASSIUM 3.9 mmol/L (3.5-5.1); TOTAL PROTEIN, SERUM 4.4 g/dL (6.4-8.2); VANCOMYCIN,RANDOM 21.8 mcg/mL (25.0-50.0)
[2019-12-24 09:05] LABS: C-REACTIVE PROTEIN QUANT 29.23 mg/dL (0.00-0.30)
[2019-12-24] MEDS ORDERED: SODIUM CHLORIDE 0.9% 1,000 ML ONE (09:08)
[2019-12-24] MEDS: FILGRASTIM 300 MCG/0.5 ML SYRINGE SQ SCH (11:16)
[2019-12-24 12:51] LABS: GLUCOMETER DEV NAME(LOC) 4E.2; GLUCOSE,POINT OF CARE 100 MG/DL (70-110)
[2019-12-24 18:43] LABS: GLUCOMETER DEV NAME(LOC) 4E.2; GLUCOSE,POINT OF CARE 117 MG/DL (70-110)
[2019-12-24] MEDS ORDERED: VANCOMYCIN HCL 750 MG in DEXTROSE 5%-WATER 250 ML IV ONE (20:00)
[2019-12-24] MEDS: ATORVASTATIN CALCIUM 20 MG TABLET PO SCH (21:00)
[2019-12-25] VITALS (9 sets, daily range): BP systolic 106–153; BP diastolic 41–64
[2019-12-25 03:29] LABS: GLUCOMETER DEV NAME(LOC) 4E.2; GLUCOSE,POINT OF CARE 137 MG/DL (70-110)
[2019-12-25] MEDS: PROPOFOL 1000 MG/ISO-OSM 100 ML IV PRN ×2 (05:30→20:44)
[2019-12-25] MEDS: PIPERACILLIN SODIUM/TAZOBACTAM 2.25 GM in DEXTROSE 5%-WATER 50 ML IV SCH ×3 (05:30→20:27)
[2019-12-25 07:10] LABS: GLUCOSE,POINT OF CARE 138 MG/DL (70-110)
[2019-12-25 07:16] LABS: HEMATOCRIT 21.6 % (36-46); HEMOGLOBIN 7.4 g/dL (12.0-16.0); MEAN CORPUSCULAR HEMOGLOBIN 29.4 pg (26.0-34.0); MEAN CORPUSCULAR HGB CONC 34.1 G/dL (31.0-37.0); MEAN CORPUSCULAR VOLUME 86 fL (80-100); RED BLOOD CELL COUNT(AUTO) 2.51 MIL/uL (4.00-5.20); RED CELL DISTRIBUTION WIDTH 19.4 % (11.5-14.5)
[2019-12-25 07:31] LABS: ALBUMIN 1.7 g/dL (3.4-5.0); BILIRUBIN,TOTAL 0.9 mg/dL (0.1-1.0); CALCIUM, TOTAL 7.8 mg/dL (8.8-10.5); CREATININE 2.57 mg/dL (0.60-1.30); MAGNESIUM 1.6 mg/dL (1.80-2.40); PHOSPHORUS 3.7 mg/dL (2.5-4.9); POTASSIUM 3.4 mmol/L (3.5-5.1); TOTAL PROTEIN, SERUM 4.6 g/dL (6.4-8.2)
[2019-12-25 07:36] LABS: PLATELET COUNT (AUTO) 11 K/uL (150-450)
[2019-12-25 07:38] LABS: BAND NEUTROPHILS % (MANUAL) 0 % (0-5)
[2019-12-25 07:39] LABS: EOSINOPHILS % (MANUAL) 12 % (1-6); LYMPHOCYTES % (MANUAL) 13 % (22-44); MONOCYTES % (MANUAL) 14 % (2-9); SEGMENTED NEUTROPHILS % 61 % (40-70)
[2019-12-25 07:40] LABS: BUFFY COAT SMEAR PREP YES (NOT DONE)
[2019-12-25 08:14] LABS: C-REACTIVE PROTEIN QUANT 29.11 mg/dL (0.00-0.30)
[2019-12-25 08:29] LABS: EPSTEIN-BARR DNA QUANT PCR Positive <100 copies/mL (Negative)
[2019-12-25] MEDS: PANTOPRAZOLE SODIUM 80 MG in SODIUM CHLORIDE 0.9% 100 ML IV SCH ×2 (08:38→18:01)
[2019-12-25] MEDS: DOCUSATE SODIUM 100 MG CAPSULE PO SCH ×2 (08:38→20:28)
[2019-12-25] MEDS: CHOLECALCIFEROL (VIT D3) 1,000 UNITS [25 MCG] TABLET PO SCH (08:38)
[2019-12-25] MEDS: LABETALOL HCL 100 MG TABLET PO SCH ×2 (08:39→20:29)
[2019-12-25] MEDS: FILGRASTIM 300 MCG/0.5 ML SYRINGE SQ SCH (11:15)
[2019-12-25 12:15] LABS: GLUCOSE,POINT OF CARE 133 MG/DL (70-110)
[2019-12-25] MEDS ORDERED: SODIUM CHLORIDE 0.9% 500 ML IV ONE (12:33)
[2019-12-25] MEDS: HydrALAZINE HCL 20 MG/ML VIAL IVP PRN (13:00)
[2019-12-25 19:17] LABS: GLUCOSE,POINT OF CARE 121 MG/DL (70-110)
[2019-12-25] MEDS: LEVOFLOXACIN 500 MG/D5% WATER 100 ML IV SCH (20:27)
[2019-12-25] MEDS: ATORVASTATIN CALCIUM 20 MG TABLET PO SCH (20:28)
[2019-12-25] MEDS ORDERED: SODIUM CHLORIDE 0.9% 100 ML ONE (22:09)
[2019-12-26] VITALS (7 sets, daily range): BP systolic 104–141; BP diastolic 43–56
[2019-12-26 00:23] LABS: GLUCOSE,POINT OF CARE 112 MG/DL (70-110)
[2019-12-26] MEDS: PIPERACILLIN SODIUM/TAZOBACTAM 2.25 GM in DEXTROSE 5%-WATER 50 ML IV SCH ×3 (04:12→19:26)
[2019-12-26] MEDS: PANTOPRAZOLE SODIUM 80 MG in SODIUM CHLORIDE 0.9% 100 ML IV SCH ×2 (04:13→13:08)
[2019-12-26] MEDS: NOREPINEPHRINE BITARTRATE 16 MG in DEXTROSE 5%-WATER 234 ML IV PRN (05:22)
[2019-12-26 05:43] LABS: MEAN CORPUSCULAR HEMOGLOBIN 29.3 pg (26.0-34.0); MEAN CORPUSCULAR HGB CONC 34.3 G/dL (31.0-37.0); MEAN CORPUSCULAR VOLUME 85 fL (80-100); PLATELET COUNT (AUTO) 23 K/uL (150-450); RED BLOOD CELL COUNT(AUTO) 2.35 MIL/uL (4.00-5.20); RED CELL DISTRIBUTION WIDTH 19.3 % (11.5-14.5)
[2019-12-26 05:53] LABS: GLUCOSE,POINT OF CARE 97 MG/DL (70-110)
[2019-12-26 06:04] LABS: HEMATOCRIT 20.1 % (36-46); HEMOGLOBIN 6.9 g/dL (12.0-16.0)
[2019-12-26] MEDS ORDERED: SODIUM CHLORIDE 0.9% 1,000 ML ONE (06:15)
[2019-12-26 07:32] LABS: ALBUMIN 1.5 g/dL (3.4-5.0); BILIRUBIN,TOTAL 0.9 mg/dL (0.1-1.0); C-REACTIVE PROTEIN QUANT 23.76 mg/dL (0.00-0.30); CALCIUM, TOTAL 7.7 mg/dL (8.8-10.5); CREATININE 3.13 mg/dL (0.60-1.30); POTASSIUM 3.4 mmol/L (3.5-5.1); TOTAL PROTEIN, SERUM 4.6 g/dL (6.4-8.2)
[2019-12-26] MEDS ORDERED: SODIUM CHLORIDE 0.9% 500 ML IV ONE ×2 (08:13→09:38)
[2019-12-26] MEDS: LABETALOL HCL 100 MG TABLET PO SCH ×2 (09:00→21:00)
[2019-12-26] MEDS: DOCUSATE SODIUM 100 MG CAPSULE PO SCH ×2 (09:00→19:18)
[2019-12-26 09:05] LABS: BAND NEUTROPHILS % (MANUAL) 0 % (0-5)
[2019-12-26] MEDS: CHOLECALCIFEROL (VIT D3) 1,000 UNITS [25 MCG] TABLET PO SCH (10:52)
[2019-12-26] MEDS: PROPOFOL 1000 MG/ISO-OSM 100 ML IV PRN ×2 (10:53→23:45)
[2019-12-26 10:59] LABS: EOSINOPHILS % (MANUAL) 2 % (1-6); LYMPHOCYTES % (MANUAL) 28 % (22-44); MONOCYTES % (MANUAL) 5 % (2-9); SEGMENTED NEUTROPHILS % 65 % (40-70)
[2019-12-26] MEDS: FILGRASTIM 300 MCG/0.5 ML SYRINGE SQ SCH (12:24)
[2019-12-26] MEDS: DEXTROSE 50%-WATER 25 GM/50 ML SYRINGE IVP PRN (12:26)
[2019-12-26] MEDS: HYDROCORTISONE SOD SUCC 100 MG/2 ML VIAL IVP SCH ×3 (13:07→23:45)
[2019-12-26 18:42] LABS: GLUCOSE,POINT OF CARE 69 MG/DL (70-110)
[2019-12-26 18:42] LABS: GLUCOSE,POINT OF CARE 157 MG/DL (70-110)
[2019-12-26] MEDS: ATORVASTATIN CALCIUM 20 MG TABLET PO SCH (21:24)
[2019-12-27] VITALS (11 sets, daily range): BP systolic 83–154; BP diastolic 44–68
[2019-12-27 01:51] LABS: GLUCOSE,POINT OF CARE 141 MG/DL (70-110)
[2019-12-27] MEDS: PANTOPRAZOLE SODIUM 80 MG in SODIUM CHLORIDE 0.9% 100 ML IV SCH ×3 (03:11→22:02)
[2019-12-27] MEDS: HydrALAZINE HCL 20 MG/ML VIAL IVP PRN (03:11)
[2019-12-27] MEDS: PIPERACILLIN SODIUM/TAZOBACTAM 2.25 GM in DEXTROSE 5%-WATER 50 ML IV SCH ×3 (03:14→22:02)
[2019-12-27 06:13] LABS: HEMATOCRIT 26.8 % (36-46); HEMOGLOBIN 9.3 g/dL (12.0-16.0); MEAN CORPUSCULAR HGB CONC 34.7 G/dL (31.0-37.0); MEAN CORPUSCULAR VOLUME 86 fL (80-100); RED CELL DISTRIBUTION WIDTH 18.2 % (11.5-14.5)
[2019-12-27 06:37] LABS: PLATELET COUNT (AUTO) 12 K/uL (150-450)
[2019-12-27 06:59] LABS: ALBUMIN 1.3 g/dL (3.4-5.0); BILIRUBIN,TOTAL 1.1 mg/dL (0.1-1.0); CALCIUM, TOTAL 8.2 mg/dL (8.8-10.5); CREATININE 2.16 mg/dL (0.60-1.30); POTASSIUM 3.4 mmol/L (3.5-5.1); TOTAL PROTEIN, SERUM 4.7 g/dL (6.4-8.2); VANCOMYCIN,RANDOM 17.1 mcg/mL (25.0-50.0)
[2019-12-27 07:03] LABS: MAGNESIUM 1.7 mg/dL (1.80-2.40); PHOSPHORUS 3.8 mg/dL (2.5-4.9)
[2019-12-27 07:17] LABS: C-REACTIVE PROTEIN QUANT 26.03 mg/dL (0.00-0.30)
[2019-12-27 07:35] LABS: GLUCOSE,POINT OF CARE 130 MG/DL (70-110)
[2019-12-27] MEDS: DOCUSATE SODIUM 100 MG CAPSULE PO SCH ×2 (07:50→22:02)
[2019-12-27] MEDS: CHOLECALCIFEROL (VIT D3) 1,000 UNITS [25 MCG] TABLET PO SCH (07:50)
[2019-12-27] MEDS: HYDROCORTISONE SOD SUCC 100 MG/2 ML VIAL IVP SCH ×2 (07:50→15:31)
[2019-12-27] MEDS: LABETALOL HCL 100 MG TABLET PO SCH (07:51)
[2019-12-27] MEDS: PROPOFOL 1000 MG/ISO-OSM 100 ML IV PRN (07:52)
[2019-12-27] MEDS: FILGRASTIM 300 MCG/0.5 ML SYRINGE SQ SCH (09:48)
[2019-12-27 11:44] LABS: BAND NEUTROPHILS % (MANUAL) 2 % (0-5); BUFFY COAT SMEAR PREP YES (NOT DONE); LYMPHOCYTES % (MANUAL) 36 % (22-44); MONOCYTES % (MANUAL) 4 % (2-9); SEGMENTED NEUTROPHILS % 58 % (40-70)
[2019-12-27] MEDS: INSULIN LISPRO 100 UNITS/ML SQ PRN ×2 (12:22→17:30)
[2019-12-27] MEDS ORDERED: VANCOMYCIN HCL 500 MG in DEXTROSE 5%-WATER 100 ML IV ONE (13:00)
[2019-12-27] MEDS ORDERED: ALBUMIN HUMAN 5%-12.5GM/250ML 250 ML IV ONE (13:30)
[2019-12-27 16:21] LABS: GLUCOSE,POINT OF CARE 142 MG/DL (70-110)
[2019-12-27] MEDS ORDERED: HEPARIN SODIUM,PORCINE 1,000 UNITS/ML VIAL IVP ONE (16:56)
[2019-12-27 19:20] LABS: GLUCOMETER DEV NAME(LOC) 4E.2; GLUCOSE,POINT OF CARE 196 MG/DL (70-110)
[2019-12-27 19:24] LABS: GLUCOSE,POINT OF CARE 201 MG/DL (70-110)
[2019-12-27] MEDS: ALBUMIN HUMAN 25%-25GM/100ML 100 ML IV SCH (21:38)
[2019-12-27] MEDS: LEVOFLOXACIN 500 MG/D5% WATER 100 ML IV SCH (21:38)
[2019-12-27] MEDS: ATORVASTATIN CALCIUM 20 MG TABLET PO SCH (22:02)
[2019-12-28] VITALS (13 sets, daily range): BP systolic 136–172; BP diastolic 61–84
[2019-12-28] MEDS: HYDROCORTISONE SOD SUCC 100 MG/2 ML VIAL IVP SCH ×3 (01:31→17:27)
[2019-12-28] MEDS: ALBUMIN HUMAN 25%-25GM/100ML 100 ML IV SCH ×4 (01:34→21:33)
[2019-12-28] MEDS: INSULIN LISPRO 100 UNITS/ML SQ PRN ×3 (02:14→14:57)
[2019-12-28] MEDS: PROPOFOL 1000 MG/ISO-OSM 100 ML IV PRN (02:44)
[2019-12-28] MEDS: PIPERACILLIN SODIUM/TAZOBACTAM 2.25 GM in DEXTROSE 5%-WATER 50 ML IV SCH ×3 (04:05→21:34)
[2019-12-28] MEDS ORDERED: SODIUM CHLORIDE 0.9% 250 ML IV ONE (04:56)
[2019-12-28] MEDS ORDERED: SODIUM CHLORIDE 0.9% 500 ML IV ONE (05:53)
[2019-12-28 05:57] LABS: HEMATOCRIT 21.9 % (36-46); HEMOGLOBIN 7.8 g/dL (12.0-16.0); MEAN CORPUSCULAR HEMOGLOBIN 30.7 pg (26.0-34.0); MEAN CORPUSCULAR HGB CONC 35.6 G/dL (31.0-37.0); MEAN CORPUSCULAR VOLUME 86 fL (80-100); RED BLOOD CELL COUNT(AUTO) 2.53 MIL/uL (4.00-5.20); RED CELL DISTRIBUTION WIDTH 17.9 % (11.5-14.5)
[2019-12-28] MEDS: PANTOPRAZOLE SODIUM 80 MG in SODIUM CHLORIDE 0.9% 100 ML IV SCH ×2 (06:03→16:45)
[2019-12-28 06:37] LABS: GLUCOMETER DEV NAME(LOC) 4E.2; GLUCOSE,POINT OF CARE 189 MG/DL (70-110)
[2019-12-28 07:15] LABS: GLUCOSE,POINT OF CARE 233 MG/DL (70-110)
[2019-12-28 07:18] LABS: ALBUMIN 2.4 g/dL (3.4-5.0); C-REACTIVE PROTEIN QUANT 19.51 mg/dL (0.00-0.30); CALCIUM, TOTAL 8.7 mg/dL (8.8-10.5); CREATININE 2.82 mg/dL (0.60-1.30); POTASSIUM 3.1 mmol/L (3.5-5.1); TOTAL PROTEIN, SERUM 5.6 g/dL (6.4-8.2)
[2019-12-28 07:29] LABS: PLATELET COUNT (AUTO) 10 K/uL (150-450)
[2019-12-28 07:31] LABS: BUFFY COAT SMEAR PREP YES (NOT DONE)
[2019-12-28 07:32] LABS: SEGMENTED NEUTROPHILS % 56 % (40-70)
[2019-12-28 07:33] LABS: BAND NEUTROPHILS % (MANUAL) 2 % (0-5); EOSINOPHILS % (MANUAL) 2 % (1-6); LYMPHOCYTES % (MANUAL) 29 % (22-44); MONOCYTES % (MANUAL) 11 % (2-9)
[2019-12-28] MEDS ORDERED: POTASSIUM CHL 10 MEQ/WATER 50 ML IV ONE (08:15)
[2019-12-28] MEDS: CHOLECALCIFEROL (VIT D3) 1,000 UNITS [25 MCG] TABLET PO SCH (09:02)
[2019-12-28] MEDS: FILGRASTIM 300 MCG/0.5 ML SYRINGE SQ SCH (09:02)
[2019-12-28] MEDS: DOCUSATE SODIUM 100 MG CAPSULE PO SCH ×2 (09:02→21:34)
[2019-12-28 09:12] LABS: VANCOMYCIN,RANDOM 25.3 mcg/mL (25.0-50.0)
[2019-12-28 13:33] LABS: CYTOMEGALOVIRUS QNT LOG10 3.439
[2019-12-28 13:42] LABS: CARDIOLIPIN AB IGA <9 APL U/mL (0-11)
[2019-12-28 14:08] LABS: GLUCOSE,POINT OF CARE 268 MG/DL (70-110)
[2019-12-28] MEDS ORDERED: HydrALAZINE HCL 20 MG/ML VIAL IVP PRN (16:15)
[2019-12-28 17:33] LABS: CALCIUM, TOTAL 8.6 mg/dL (8.8-10.5); CREATININE 2.95 mg/dL (0.60-1.30); POTASSIUM 3.2 mmol/L (3.5-5.1)
[2019-12-28] MEDS: AmLODIPine BESYLATE 5 MG TABLET PO SCH (17:35)
[2019-12-28 18:16] LABS: GLUCOMETER DEV NAME(LOC) 4E.2; GLUCOSE,POINT OF CARE 226 MG/DL (70-110)
[2019-12-28] MEDS: ATORVASTATIN CALCIUM 20 MG TABLET PO SCH (21:34)
[2019-12-29] VITALS (9 sets, daily range): BP systolic 135–165; BP diastolic 67–83
[2019-12-29] MEDS: ALBUMIN HUMAN 25%-25GM/100ML 100 ML IV SCH ×4 (02:35→20:35)
[2019-12-29] MEDS: PANTOPRAZOLE SODIUM 80 MG in SODIUM CHLORIDE 0.9% 100 ML IV SCH ×3 (02:36→21:43)
[2019-12-29] MEDS: HYDROCODONE/ACETAMINOPHEN 5-325 MG TABLET PO PRN (03:27)
[2019-12-29] MEDS: PROPOFOL 1000 MG/ISO-OSM 100 ML IV PRN ×3 (03:50→21:41)
[2019-12-29] MEDS: PIPERACILLIN SODIUM/TAZOBACTAM 2.25 GM in DEXTROSE 5%-WATER 50 ML IV SCH ×3 (04:00→20:34)
[2019-12-29 07:04] LABS: GLUCOSE,POINT OF CARE 134 MG/DL (70-110)
[2019-12-29] MEDS ORDERED: SODIUM CHLORIDE 0.9% 2,000 ML ONE (07:06)
[2019-12-29] MEDS: INSULIN LISPRO 100 UNITS/ML SQ PRN ×2 (07:47→17:34)
[2019-12-29 08:29] LABS: HEMATOCRIT 21.2 % (36-46); HEMOGLOBIN 7.3 g/dL (12.0-16.0); MEAN CORPUSCULAR HEMOGLOBIN 30.1 pg (26.0-34.0); MEAN CORPUSCULAR HGB CONC 34.6 G/dL (31.0-37.0); MEAN CORPUSCULAR VOLUME 87 fL (80-100); RED BLOOD CELL COUNT(AUTO) 2.44 MIL/uL (4.00-5.20); RED CELL DISTRIBUTION WIDTH 18.7 % (11.5-14.5)
[2019-12-29 08:44] LABS: PLATELET COUNT (AUTO) 16 K/uL (150-450)
[2019-12-29] MEDS: DOCUSATE SODIUM 100 MG CAPSULE PO SCH ×2 (09:00→20:34)
[2019-12-29] MEDS: HYDROCORTISONE SOD SUCC 100 MG/2 ML VIAL IVP SCH ×3 (09:25→16:25)
[2019-12-29] MEDS: CHOLECALCIFEROL (VIT D3) 1,000 UNITS [25 MCG] TABLET PO SCH (09:26)
[2019-12-29] MEDS: FILGRASTIM 300 MCG/0.5 ML SYRINGE SQ SCH (09:26)
[2019-12-29 09:27] LABS: ALBUMIN 2.9 g/dL (3.4-5.0); BILIRUBIN,TOTAL 1.2 mg/dL (0.1-1.0); C-REACTIVE PROTEIN QUANT 17.83 mg/dL (0.00-0.30); CALCIUM, TOTAL 8.8 mg/dL (8.8-10.5); CREATININE 2.57 mg/dL (0.60-1.30); MAGNESIUM 1.7 mg/dL (1.80-2.40); PHOSPHORUS 3.3 mg/dL (2.5-4.9); POTASSIUM 3.9 mmol/L (3.5-5.1); TOTAL PROTEIN, SERUM 5.6 g/dL (6.4-8.2)
[2019-12-29 11:31] LABS: BARTONELLA QUINTANA IGG TITER Negative titer (Neg:<1:320); BARTONELLA QUINTANA IGM TITER Negative titer (Neg:<1:100)
[2019-12-29] MEDS: AmLODIPine BESYLATE 5 MG TABLET PO SCH (12:28)
[2019-12-29 12:36] LABS: GLUCOSE,POINT OF CARE 204 MG/DL (70-110)
[2019-12-29 13:04] LABS: BUFFY COAT SMEAR PREP YES (NOT DONE)
[2019-12-29 13:07] LABS: SEGMENTED NEUTROPHILS % 28 % (40-70)
[2019-12-29 13:08] LABS: BAND NEUTROPHILS % (MANUAL) 13 % (0-5); EOSINOPHILS % (MANUAL) 2 % (1-6); LYMPHOCYTES % (MANUAL) 39 % (22-44); METAMYELOCYTES % 1 % (0-0); MONOCYTES % (MANUAL) 15 % (2-9); MYELOCYTES % 1 % (0-0); REACTIVE LYMPHOCYTES 1 % (0-0)
[2019-12-29] MEDS ORDERED: HEPARIN SODIUM,PORCINE 1,000 UNITS/ML VIAL IVP ONE (17:02)
[2019-12-29 18:47] LABS: GLUCOSE,POINT OF CARE 117 MG/DL (70-110)
[2019-12-29 18:47] LABS: GLUCOSE,POINT OF CARE 179 MG/DL (70-110)
[2019-12-29] MEDS: ATORVASTATIN CALCIUM 20 MG TABLET PO SCH (20:33)
[2019-12-29] MEDS: LEVOFLOXACIN 500 MG/D5% WATER 100 ML IV SCH (20:34)
[2019-12-30] VITALS: BP 151/77
[2019-12-30] MEDS: INSULIN LISPRO 100 UNITS/ML SQ PRN ×2 (00:43→06:14)
[2019-12-30] MEDS: HYDROCORTISONE SOD SUCC 100 MG/2 ML VIAL IVP SCH (00:48)
[2019-12-30 02:00] VITALS: BP 151/75
[2019-12-30] MEDS: ALBUMIN HUMAN 25%-25GM/100ML 100 ML IV SCH ×2 (02:10→06:17)
[2019-12-30 06:00] VITALS: BP_SYST 155; BP_DIAS 72; BP_DIAS 73
[2019-12-30] MEDS: PIPERACILLIN SODIUM/TAZOBACTAM 2.25 GM in DEXTROSE 5%-WATER 50 ML IV SCH (06:13)
[2019-12-30] MEDS: HYDROCODONE/ACETAMINOPHEN 5-325 MG TABLET PO PRN (06:13)
[2019-12-30 06:14] LABS: GLUCOSE,POINT OF CARE 183 MG/DL (70-110)
[2019-12-30] MEDS: PANTOPRAZOLE SODIUM 80 MG in SODIUM CHLORIDE 0.9% 100 ML IV SCH (06:18)
[2019-12-30 06:42] LABS: HEMATOCRIT 21.4 % (36-46); HEMOGLOBIN 7.5 g/dL (12.0-16.0); MEAN CORPUSCULAR HEMOGLOBIN 30.6 pg (26.0-34.0); MEAN CORPUSCULAR HGB CONC 35.2 G/dL (31.0-37.0); MEAN CORPUSCULAR VOLUME 87 fL (80-100); RED BLOOD CELL COUNT(AUTO) 2.47 MIL/uL (4.00-5.20); RED CELL DISTRIBUTION WIDTH 18.1 % (11.5-14.5)
[2019-12-30 07:03] LABS: PLATELET COUNT (AUTO) 17 K/uL (150-450)
[2019-12-30 07:07] LABS: ALBUMIN 3.5 g/dL (3.4-5.0); BILIRUBIN,TOTAL 1.2 mg/dL (0.1-1.0); C-REACTIVE PROTEIN QUANT 17.77 mg/dL (0.00-0.30); CALCIUM, TOTAL 8.9 mg/dL (8.8-10.5); CREATININE 1.83 mg/dL (0.60-1.30); POTASSIUM 3.4 mmol/L (3.5-5.1)
[2019-12-30 07:49] LABS: GLUCOSE,POINT OF CARE 213 MG/DL (70-110)
[2019-12-30 08:00] VITALS: BP 136/89
[2019-12-30 08:00] LABS: ABG A-A DIFF O2 91.9 mmHg (10-20.0); ABG BASE EXCESS -5.6 mmol/L (-2.0-3.0); ABG CARBOXYHEMOGLOBIN 0.2 % (0.0-1.5); ABG HCO3 20.4 mmol/L (22.0-26.0); ABG METHEMOGLOBIN 0.3 % (0.0-1.5); ABG OXYGEN CONTENT 10.8 mL/dL (15.0-23.0); ABG OXYGEN SATURATION 96.3 % (95.0-98.0); ABG OXYHEMOGLOBIN 95.8 % (94.0-100.0); ABG PCO2 26 mmHg (35-45); ABG PH 7.463 (7.35-7.450); PO2, ARTERIAL BG 91.5 mmHg (84.0-92.0); SOURCE, BLOOD GAS ARTERIAL; TEMPERATURE, FAHRENHEIT, BG 98.6 FAHREN (96.0-98.6)
[2019-12-30 08:01] LABS: O2 DEVICE,BLOOD GAS VENTILATOR (ROOM AIR); PEEP,BG 5 cm H2O; SITE, BLOOD GAS ARTERIAL LINE; VT, ABG 350 ml
[2019-12-30] MEDS: PROPOFOL 1000 MG/ISO-OSM 100 ML IV PRN (08:46)
[2019-12-30 08:50] LABS: BAND NEUTROPHILS % (MANUAL) 25 % (0-5); LYMPHOCYTES % (MANUAL) 31 % (22-44); METAMYELOCYTES % 1 % (0-0); MONOCYTES % (MANUAL) 13 % (2-9); MYELOCYTES % 1 % (0-0); SEGMENTED NEUTROPHILS % 29 % (40-70)
[2019-12-30] MEDS ORDERED: MORPHINE SULFATE 100 MG/NS/PF 100 ML IV PRN (10:46)
[2019-12-30 12:00] VITALS: BP 159/74
[2019-12-30 16:00] VITALS: BP 162/82
[2019-12-30 18:22] LABS: ABG TOTAL HEMOGLOBIN 7.9 G/dL (12.0-18.0)
[2020-01-01 00:06] LABS: PARVOVIRUS B19 QNT PCR Negative copies/mL (Negative)
[2020-01-05 10:22] LABS: PARVOVIRUS B19 QNT PCR Negative copies/mL (Negative)
== END 2019-12-31 01:17 | disposition expired | DRG 870 ==
LOC: EMS 15:15 → ICU 21:00 → 6S 12-30 19:13
PROVIDERS: ADMIT Internal Medicine; ATTEND Internal Medicine
PROC: 5A1955Z Respiratory Ventilation, Greater than 96 Consecutive Hours (ICD-10-PCS; principal; 2019-12-20)
PROC: 0BH17EZ Insertion of Endotracheal Airway into Trachea, Via Natural or Artificial Opening (ICD-10-PCS; 2019-12-20)
PROC: 5A1D70Z Performance of Urinary Filtration, Intermittent, Less than 6 Hours Per Day (ICD-10-PCS; 2019-12-20)
PROC: 30233N1 Transfusion of Nonautologous Red Blood Cells into Peripheral Vein, Percutaneous Approach (ICD-10-PCS; 2019-12-20)
PROC: 02H633Z Insertion of Infusion Device into Right Atrium, Percutaneous Approach (ICD-10-PCS; 2019-12-21)
PROC: 5A1D70Z Performance of Urinary Filtration, Intermittent, Less than 6 Hours Per Day (ICD-10-PCS; 2019-12-21)
PROC: 5A1D70Z Performance of Urinary Filtration, Intermittent, Less than 6 Hours Per Day (ICD-10-PCS; 2019-12-22)
PROC: 5A1D70Z Performance of Urinary Filtration, Intermittent, Less than 6 Hours Per Day (ICD-10-PCS; 2019-12-24)
PROC: 30233R1 Transfusion of Nonautologous Platelets into Peripheral Vein, Percutaneous Approach (ICD-10-PCS; 2019-12-25)
PROC: 5A1D70Z Performance of Urinary Filtration, Intermittent, Less than 6 Hours Per Day (ICD-10-PCS; 2019-12-26)
PROC: 5A1D70Z Performance of Urinary Filtration, Intermittent, Less than 6 Hours Per Day (ICD-10-PCS; 2019-12-29)
DX: A41.9 Sepsis, unspecified organism (principal); E43 Unspecified severe protein-calorie malnutrition; N18.6 End stage renal disease; D65 Disseminated intravascular coagulation [defibrination syndrome]; G93.41 Metabolic encephalopathy; R65.21 Severe sepsis with septic shock; J96.00 Acute respiratory failure, unspecified whether with hypoxia or hypercapnia; N17.9 Acute kidney failure, unspecified; N39.0 Urinary tract infection, site not specified; D61.818 Other pancytopenia; Z94.0 Kidney transplant status; I13.2 Hypertensive heart and chronic kidney disease with heart failure and with stage 5 chronic kidney disease, or end stage renal disease; E87.2 Acidosis; T86.12 Kidney transplant failure; Z99.11 Dependence on respirator [ventilator] status; T82.818A Embolism due to vascular prosthetic devices, implants and grafts, initial encounter; Z66 Do not resuscitate; E87.5 Hyperkalemia; E11.22 Type 2 diabetes mellitus with diabetic chronic kidney disease; E78.5 Hyperlipidemia, unspecified; B96.89 Other specified bacterial agents as the cause of diseases classified elsewhere; B96.20 Unspecified Escherichia coli [E. coli] as the cause of diseases classified elsewhere; I25.2 Old myocardial infarction; E78.00 Pure hypercholesterolemia, unspecified; F17.210 Nicotine dependence, cigarettes, uncomplicated; Z91.19 Patient's noncompliance with other medical treatment and regimen; I25.10 Atherosclerotic heart disease of native coronary artery without angina pectoris; E11.21 Type 2 diabetes mellitus with diabetic nephropathy; F32.9 Major depressive disorder, single episode, unspecified; R31.0 Gross hematuria; I50.9 Heart failure, unspecified; Z68.20 Body mass index [BMI] 20.0-20.9, adult; K52.9 Noninfective gastroenteritis and colitis, unspecified; D64.9 Anemia, unspecified; B96.1 Klebsiella pneumoniae [K. pneumoniae] as the cause of diseases classified elsewhere; E87.6 Hypokalemia; Y83.2 Surgical operation with anastomosis, bypass or graft as the cause of abnormal reaction of the patient, or of later complication, without mention of misadventure at the time of the procedure; Z20.828 Contact with and (suspected) exposure to other viral communicable diseases
CPT/HCPCS: 36245; 36569; 36600; 70450; 71250; 72192; 74150; 76700; 76770; 76937; 80197; 82271; 82330; 82728; 82805; 82977; 83010; 83520; 83605; 83615; 83735; 84100; 84145; 84478; 85009; 85014; 85018; 85379; 85384; 85613; 85732; 86140; 86147; 86160; 86603; 86611; 86850; 86880; 86900; 86901; 86920; 86923; 87040; 87045; 87070; 87081; 87086; 87205; 87324; 87340; 87449; 87496; 87497; 87798; 87799; 93005; 94002; 94003; 99291; C9113; G0378; G0480; J0360; J0610; J0696; J0713; J1170; J1644; J1720; J1815; J1956; J2270; J2370; J2543; J2704; J3370; J3480; J3490; J7030; J7040; J7050; J7060; P9016; P9035; P9041; P9046; P9047